=== PATIENT | female | born 1955 | race Two or more races ===

== ENCOUNTER → 2017-04-01 | Outpatient (CLI) | payer MEDICARE, MEDICAID ==
[~2017-04-01] MED LIST: DIVA250T6 PO; DONE10TA7 PO; GADOBUTROL 7.5 MMOL/7.5 ML PFS ONE; LEVE10007 PO; OMEG500C3 PO; PARO20TA4 PO; SIMV40TA3 PO
== END | disposition home or self-care (01) ==
LOC: RAD 10:55
PROVIDERS: ATTEND Psychiatry & Neurology Neurology
DX: R90.82 White matter disease, unspecified (principal); Q85.01 Neurofibromatosis, type 1; Z98.890 Other specified postprocedural states
CPT/HCPCS: 70553; A9585